=== PATIENT | female | born 1975 | race Caucasian/White ===

== ENCOUNTER 2021-02-05 13:19 | Emergency (ER) | payer OTHER, SELFPAY ==
[2021-02-05 13:26] VITALS: BP 146/94; PULSE 88; RESP 18; TEMP 37.4; O2SAT 100
--- NOTE | 2021-02-05 14:02 | ED.URI ---
HPI - URI/Sore Throat General Chief Complaint: Upper Respiratory Infection Stated Complaint: Cough,Congestion Source: patient and RN notes reviewed Limitations: no limitations History of Present Illness HPI Narrative: The vaccinated patient, a smoker/nondrinker, presents with nearly 2 weeklong history of scantly productive cough, associated with nasal congestion preceding sore throat which is improved. No fever, earache, wheezing; no loss of taste/smell, CP, vomiting/diarrhea S OB. Family members been similarly ill, and symptoms unrelieved with OTC preparation Related Data Allergies Allergy/AdvReac Type Severity Reaction Status Date / Time gluten Allergy Unknown DIARRHEA Verified 02/10/19 12:49 HYDROCODONE BIT Allergy Unknown HIVES Uncoded 02/10/19 12:49 Review of Systems Review of Systems: The patient has been informed that they may have pre-hypertension or Hypertension based on a BP reading in the department. I recommend that the patient call the primary care provider listed on their discharge instructions or a physician of their choice this week to arrange follow up for further evaluation of possible pre-hypertension or Hypertension General/Constitutional: No weight loss,fever Eyes: N0: Redness,discharge Ears/Nose/Throat: No: Epistaxis,ear discharge Respiratory: Denies: Hemoptysis Gastrointestinal: No Vomiting, Bleeding-rectal Skin: No Lumps, eruption Neurologic: No Focal Weakness,Sz Hematologic: Denies: Petechiae/Purpura Psychiatric: No: Suicida ideationl All Other Systems: Reviewed and Negative PMFSH Family History Family History (Updated 11/05/15 @ 23:19 by DOCTOR UNKNOWN) Father Cerebrovascular accident Family history of diabetes mellitus in first degree relative Grandparent Cerebrovascular accident Diabetes mellitus Social History Social History Smoking status: Smoker, status unknown Second hand tobacco smoke exposure: Yes Alcohol intake: current Comments At time of signature, agree with nursing past medical, surgical, social and family history. There is no relevant family history pertinent to the presenting complaint Exam Narrative: General Appearance: Well appearing, Well nourished EYE: PERRLA, Conjunctiva clear Ears: Auditory canal normal, TM normal Nose: Rhinorrhea, Mucousal erythema Mouth/Throat: MM moist, Uvula midline, Pharyngeal erythema Neck: Supple, No adenopathy Respiratory: No respiratory distress, Breath sounds equal, Clear to auscultation Cardiovascular: RRR, No JVD Musculoskeletal: Non tender, Normal strength Skin: Warm, Dry Neurological: A&O x3, CN II-XII intact Psychiatric: Normal mood, Normal affect Course Vital Signs Vital signs: Vital Signs Temperature 99.3 F 02/05/21 13:26 Pulse Rate 88 02/05/21 13:26 Respiratory Rate 18 02/05/21 13:26 Blood Pressure 146/94 H 02/05/21 13:26 Pulse Oximetry 100 02/05/21 13:26 Temperature 99.3 F 02/05/21 13:26 Pulse Rate 88 02/05/21 13:26 Respiratory Rate 18 02/05/21 13:26 Blood Pressure 146/94 H 02/05/21 13:26 Pulse Oximetry 100 02/05/21 13:26 MDM - URI/Sore Throat Lab Data Labs: Lab Results 02/05/21 Range/Units 13:45 POC SARS CoV-2 Ag Negative (Negative) Discharge Plan Discharge Clinical Impression: Sinus headache, Cough Patient Disposition: Home, Self-Care Condition: Stable Instructions: Acute Bronchitis (ED) Prescriptions: New benzonatate [Tessalon Perles] 100 mg capsule 100 mg PO TID Qty: 20 RF: 1 codeine-guaifenesin 10-100 mg/5 mL liquid 7.5 ml PO Q6H PRN (Reason: cough) Qty: 118 RF: 0 azelastine 137 mcg (0.1 %) aerosol,spray 137 mcg NASAL Q12H Qty: 30 RF: 0 cefuroxime axetil 500 mg tablet 500 mg PO Q12H Qty: 14 RF: 0 Follow-up/Referrals: Renny Olivier MD [Primary Care Provider] -
== END 2021-02-05 14:15 | disposition home or self-care (01) ==
PROVIDERS: Emergency Provider Emergency Medicine; PCP Family Medicine
DX: R51.9 Headache, unspecified (principal); R05.9 Cough, unspecified; Z20.822 Contact with and (suspected) exposure to COVID-19
CPT/HCPCS: 87426; 99213; C9803; G0463

== ENCOUNTER 2023-10-29 16:55 | Emergency (ER) | payer OTHER, SELFPAY ==
[2023-10-29 17:03] VITALS: BP 155/96; PULSE 87; RESP 16; TEMP 36.8; O2SAT 99
[2023-10-29 17:15] LABS: EDUAAPPEAR Cloudy; EDUABILI Negative; EDUABLOOD 3+; EDUACOLOR1 Yellow; EDUAGLUCOSE Negative; EDUAKETONE Negative; EDUALEUKO 1+; EDUANITRATE Negative; EDUAPH 5.5; EDUAPROTEIN Negative; EDUASPGRAVITY 1.005; EDUAUROBILI 0.2
--- NOTE | 2023-10-29 17:21 | ED.FEMALEGU ---
HPI - Female Genitourinary General Chief complaint: Urogenital-Female Stated complaint: urinary issue Time Seen by Provider: 10/29/23 17:12 Source: patient and RN notes reviewed Mode of arrival: ambulatory Limitations: no limitations History of Present Illness HPI Narrative: Patient presents today complaining of urinary frequency, dysuria, and suprapubic pressure for the past 5-6 hours. Denies any additional symptoms. No [id number] treatment prior to arrival. Related Data Allergies Allergy/AdvReac Type Severity Reaction Status Date / Time acetaminophen [From Vicodin] Allergy Intermediate Hives Verified 10/29/23 17:15 gluten Allergy Intermediate DIARRHEA Verified 10/29/23 16:57 hydrocodone [From Vicodin] Allergy Intermediate Hives Verified 10/29/23 17:15 Review of Systems Review of Systems: CONSTITUTIONAL: Denies body aches, fever, chills, or sweats. EYES: Denies visual changes, redness, or discharge. ENT: Denies rhinorrhea, congestion, sore throat, or otalgia. CARDIOVASCULAR: Denies chest pain, palpitations, or edema. RESPIRATORY: Denies cough or dyspnea. GASTROINTESTINAL: Denies nausea, vomiting, or diarrhea.+ suprapubic pressure GENITOURINARY: Denies hematuria.+ dysuria, frequency SKIN: Denies rash, itching, or wounds. MUSCULOSKELETAL: Denies back pain, joint pain, or myalgia. NEUROLOGIC: Denies headache, numbness, tingling, or weakness. PSYCH: Denies depression or anxiety. PMFSH Family History Family History Father Cerebrovascular accident Family history of diabetes mellitus in first degree relative Grandparent Cerebrovascular accident Diabetes mellitus Social History Social History Smoking status: Smoker, status unknown Second hand tobacco smoke exposure: Yes Alcohol intake: current Comments At time of signature, I have reviewed and agree with nursing past medical, surgical, social and family history unless otherwise noted. Please see nursing chart for further information. There is no relevant family history pertinent to the presenting complaint Exam Narrative: GENERAL: Well-appearing, well-nourished, and in no acute distress. HEAD: Normocephalic, atraumatic. EYES: EOMI. No redness or drainage. Conjunctivae normal. ENT: Mucous membranes pink and moist. NECK: Normal AROM. CHEST: No respiratory distress. Clear to auscultation. HEART: Regular rate and rhythm. No murmur appreciated. Normal peripheral pulses. ABDOMEN: Soft, nondistended, normal active bowel sounds.+ mild suprapubic tenderness.-CVAT EXTREMITIES: Normal range of motion. No edema. SKIN: Warm, dry, no rash. Capillary refill normal. Normal skin turgor. NEURO: No focal deficits. Alert and oriented x3. Gait steady. PSYCH: Normal affect. No signs of depression or anxiety. Course Course Level of Care: Express Care Visit Vital Signs Vital signs: Vital Signs Temperature 98.3 F 10/29/23 17:03 Pulse Rate 87 10/29/23 17:03 Respiratory Rate 16 10/29/23 17:03 Blood Pressure 155/96 H 10/29/23 17:03 Pulse Oximetry 99 10/29/23 17:03 Oxygen Delivery Room Air 10/29/23 17:03 Temperature 98.3 F 10/29/23 17:03 Pulse Rate 87 10/29/23 17:03 Respiratory Rate 16 10/29/23 17:03 Blood Pressure 155/96 H 10/29/23 17:03 Pulse Oximetry 99 10/29/23 17:03 Oxygen Delivery Room Air 10/29/23 17:03 Reviewed MDM - Female Genitourinary MDM Narrative Medical decision making narrative: Urinalysis and history is consistent with UTI. Prescription for Augmentin sent to pharmacy. Anticipatory guidance given. Differential Diagnosis Differential diagnosis: Likely urinary tract infection, vaginitis and cystitis Lab Data Attestation: I reviewed the patient's lab results. Labs: Lab Results 10/29/23 Range/Units 17:10 POC Urine Color Yellow POC Urine Clarity Cloudy PO
== END 2023-10-29 17:29 | disposition home or self-care (01) ==
PROVIDERS: Emergency Provider Nurse Practitioner; PCP Family Medicine
DX: N30.01 Acute cystitis with hematuria (principal); B96.20 Unspecified Escherichia coli [E. coli] as the cause of diseases classified elsewhere; K90.0 Celiac disease; Z90.711 Acquired absence of uterus with remaining cervical stump
CPT/HCPCS: 81003; 87077; 87086; 87088; 87186; 99213; G0463

== ENCOUNTER 2024-06-15 08:41 | Emergency (ER) | payer OTHER, SELFPAY ==
--- NOTE | ~2024-06-15 | XR_ITS ---
Clinical Indication: Cough PA and lateral views of the chest: Comparison: 04/25/2018 Findings: The lungs are clear, without evidence of focal consolidation or pleural effusion. Cardiome diastinal silhouette is stable. Bones and soft tissues are unremarkable. Impression: Clear lungs. Reviewed, dictated and finalized at location . Impression: Clear lungs.
[2024-06-15 08:49] VITALS: BP 140/95; PULSE 74; RESP 16; TEMP 36.4; O2SAT 97
--- NOTE | 2024-06-15 09:04 | ED.URI ---
HPI - URI/Sore Throat General Chief Complaint: Upper Respiratory Infection Stated Complaint: cough,sore throat,congestions Time Seen by Provider: 06/15/24 09:05 Source: patient, RN notes reviewed and old records reviewed Mode of arrival: ambulatory Limitations: no limitations History of Present Illness HPI Narrative: 48-year-old female presents to the [facility] with 4 day history of body aches, denies fevers. Reports ear pressure, nasal congestion, sore throat and a dry cough. Has tried over the counter cough and cold medicine. Onset (ago): day(s) (4) Treatments prior to arrival: cold medicine Related Data Allergies Allergy/AdvReac Type Severity Reaction Status Date / Time acetaminophen (From Vicodin) Allergy Intermediate Hives Verified 06/15/24 12:01 gluten Allergy Intermediate DIARRHEA Verified 06/15/24 12:01 hydrocodone (From Vicodin) Allergy Intermediate Hives Verified 06/15/24 12:01 Review of Systems Review of Systems: All systems reviewed & are unremarkable except as noted in HPI and below Constitutional: Constitutional: Reports as per HPI and Denies fever(s) ENT: Reports as per HPI, Reports otalgia, Reports sinus pressure and Reports sore throat Cardiovascular: Cardiovascular: Reports no additional cardiovascular complaints, Denies chest pain and Denies dyspnea Respiratory: Respiratory: Reports as per HPI, Denies chest congestion, Reports cough and Denies dyspnea Musculoskeletal: Musculoskeletal: Reports no additional musculoskeletal complaints Integumentary/Breasts: Skin/Breast: Reports system reviewed and no additional complaints, except as docu PMFSH Family History Family History Father Cerebrovascular accident Family history of diabetes mellitus in first degree relative Grandparent Cerebrovascular accident Diabetes mellitus Social History Social History Smoking status: Smoker, status unknown Second hand tobacco smoke exposure: Yes Alcohol intake: current Comments At the time of my signature, I reviewed and agree with the nursing past medical, surgical, social, and family history. There is no relevant family history pertinent to the patient complaint. Exam Const: General: cooperative, comfortable, no acute distress, well developed, alert, tired appearing and well nourished Nutritional Appearance: well nourished Orientation/consciousness: patient oriented x3 Limitations: no limitations HENMT: Head: normal to inspection Ears: hearing grossly normal bilaterally, external ears normal, EAC's normal, mastoids normal, no periauricular adenopathy and TM abnormal bulging bilateral and with fluid behind the TM bilateral; not erythematous Mouth: Yes Normal oral and palatal mucosa present, Yes lip normal, Yes tongue normal and Yes moist mucous membranes Throat: uvula midline, posterior oropharynx abnormal erythema; no edema and no exudates, postnasal drainage and no uvular edema Eyes: General: appearance normal, both eyes and all related structures Alignment and Position: alignment normal Neck: Neck: normal visual inspection, full ROM, no lymphadenopathy and no meningeal signs Chest: Chest palpation & inspection: normal inspection of the chest Resp: Effort & Inspection: normal respiratory effort and able to speak in complete sentences Auscultation: no crackles, no rales, no rhonchi and wheezes expiratory wheezes, right lower and right upper Cardio: Rate: regular rate Skin: General skin exam: normal color and no rashes or lesions noted Neuro: General: patient oriented x3, gait normal, moves all extremities and no meningeal signs Cognition (Neuro): normal cognition Speech: normal speech Gait exam (Neuro): Normal gait present Extrem: General: normal to inspection, full ROM, capillary refill normal and normal gait Psych: Appearance: grossly normal and well kempt Mental Status: mental status grossly normal Speech and movement: Normal speech and movement present and Clear speech present Affect: normal affect Attitude: cooperative Course Course Level of Care: Express Care Visit Vital Signs Vital signs: Vital Signs Temperature 97.6 F 06/15/24 08:49 Pulse Rate 74 06/15/24 08:49 Respiratory Rate 16 06/15/24 08:49 Blood Pressure 140/95 H 06/15/24 08:49 Pulse Oximetry 97 06/15/24 08:49 Oxygen Delivery Room Air 06/15/24 08:49 Temperature 97.6 F 06/15/24 08:49 Pulse Rate 74 06/15/24 08:49 Respiratory Rate 16 06/15/24 08:49 Blood Pressure 140/95 H 06/15/24 08:49 Pulse Oximetry 97 06/15/24 08:49 Oxygen Delivery Room Air 06/15/24 08:49 Reviewed MDM - URI/Sore Throat MDM Narrative Medical decision making narrative: Patient sitting in exam room. Nontoxic, vitals stable. Patient with 4 day history of URI symptoms. Wheezing is noted to the right upper lobe. Patient is flu, COVID, strep are negative. Patient's chest x-ray showed no acute findings. Symptoms consistent with viral bronchitis. Patient appropriate for outpatient treatment and follow-up Discharge instructions reviewed with patient, as well as provided in writing per nursing staff. The instructions also include specific and strict return/GO TO THE ER as well as f/u information. All questions have been answered, and the patient deny any further questions with discharge and discharge plan. Some parts of this dictation were generated by voice recognition software and may contain typographical and/or grammatical inaccuracies. Differential Diagnosis Differential diagnosis: Likely upper respiratory infection, otitis media, sinusitis, viral infection, bronchitis, influenza and pharyngitis Lab Data Labs: Lab Results 06/15/24 06/15/24 Range/Units 09:33 09:34 POC Influenza A Ag Negative (Negative) POC Influenza B Ag Negative (Negative) POC SARS CoV-2 Ag Negative (Negative) POC Grp A Strep Screen Negative (Negative) Reviewed Imaging Data Radiologist's impression: Clinical Indication: Cough PA and lateral views of the chest: Comparison: 04/25/2018 Findings: The lungs are clear, without evidence of focal consolidation or pleural effusion. Cardiomediastinal silhouette is stable. Bones and soft tissues are unremarkable. Impression: Clear lungs Critical Care Time Critical Care Time Critical Care Time: No Discharge Plan Discharge Clinical Impression: Bronchitis Acute serous otitis media, bilateral Qualifiers: Recurrence: not specified as recurrent Qualified Code(s): H65.03 - Acute serous otitis media, bilateral Patient Disposition: Home, Self-Care Condition: Stable Instructions: Antibiotic Form, Acute Bronchitis (ED), Fluid In The Ear (Serous Otitis Media) (ED) Additional Instructions: Your blood pressure 140/90. It is recommended you follow-up with your primary care provider within 2 weeks Your rapid strep swab was negative today at [facility]. A throat culture will be sent to the laboratory for further testing. If the test is positive, you will receive a phone call within 48 hours and an appropriate antibiotic will be initiated at that time. Your rapid COVID test were negative Your rapid flu test was negative Your symptoms are likely due to a viral illness, which is not treated with antibiotics. Typically viral infections last 7-10 days, can linger for couple of weeks. It is very important to treat your symptoms. Drink plenty of water, Gatorade, Pedialyte, ice pops or Jell-O. -Alternate Tylenol and Motrin per package directions for fever or pain. You can alternate every 4 hours -Antihistamine medication such as Zyrtec/Claritin/Karin during the day can help improve symptoms. -doing daily nasal irrigations can help relieve pressure your sinuses. Things like a Neti pot -Use Flonase twice a day for 5 days then daily to help reduce the inflammation and dry up your sinuses. -You can also use Mucinex. Be sure to drink plenty of water with this medication at least 8 ounces with every dose and it is important to drink 8 to 10 glasses of water per day. Water is a natural decongestant -Eat and drink things that are easy to swallow, like tea or soup, or popsicles. -Oral rinses such as: Salt water gargles and/or may use topical anesthetic (eg. Chloraseptic spray) or lozenges to relieve dryness or throat pain). -Frequent hand washing or hand supplier quality engineering manager is one of the best ways to prevent spread of infection. -Using a vaporizer or humidifier at night will also help thin secretions and help with coughing up phlegm. -Follow up with primary care provider in 7-10 days if condition is not improving - For new or worsening symptoms go directly to the nearest ER Patient Language: Amharic Prescriptions: New methylprednisolone [Medrol (Joshua)] 4 mg tablets,dose pack See Rx Instructions PO .COMPLEX Qty: 21 0RF Rx Instructions: orally per package directions albuterol sulfate 90 mcg/actuation HFA aerosol inhaler 2 puff inhalation QID PRN (Reason: shortness of breath or wheezing) Qty: 6.7 0RF (DME) Aerochamber MV Spacer See Rx Instructions .Route Qty: 1 0RF Rx Instructions: As directed Follow-up/Referrals: Renny Olivier MD [Primary Care Provider] - 2 Weeks ([facility] follow up) Stand Alone Forms: Work/School Release IP Time of Disposition: 09:34
[2024-06-15 09:35] LABS: EDCOVIDSCREEN Negative (Negative); EDINFLUASCREEN Negative (Negative); EDINFLUBSCREEN Negative (Negative)
[2024-06-15 09:36] LABS: EDSTREPNEGPOS1 Negative (Negative)
== END 2024-06-15 09:43 | disposition home or self-care (01) ==
PROVIDERS: Emergency Provider Nurse Practitioner; PCP Family Medicine
DX: J40 Bronchitis, not specified as acute or chronic (principal); H65.03 Acute serous otitis media, bilateral; Z20.822 Contact with and (suspected) exposure to COVID-19
CPT/HCPCS: 71046; 87081; 87426; 87804; 87880; 99213; G0463